=== PATIENT | male | born 1990 | race Caucasian/White ===

== ENCOUNTER 2018-03-29 21:57 | Emergency (ER) | payer OTHER, SELFPAY ==
[2018-03-29 23:23] LABS: KETONE, URINE AUTO RFX NEGATIVE (NEGATIVE); LEUKOCYTE ESTERASE UR AUTO RFX NEGATIVE (NEGATIVE); MUCUS, URINE RFX SMALL (NEGATIVE); NITRITE, URINE AUTO RFX NEGATIVE (NEGATIVE); RBC, URINE AUTO RFX 1 /HPF (0-3); SPECIFIC GRAVITY UR AUTO RFX 1.008 (1.002-1.035); SQUAM EPITHELIAL CELL UR AURFX 0 /HPF (0-6); WBC, URINE AUTO RFX 0 /HPF (0-3)
== END 2018-03-30 00:17 | disposition home or self-care (01) ==
LOC: M ED 03-30 00:17
DX: S13.9XXA Sprain of joints and ligaments of unspecified parts of neck, initial encounter (principal); T14.8XXA Other injury of unspecified body region, initial encounter; V43.52XA Car driver injured in collision with other type car in traffic accident, initial encounter; Y92.411 Interstate highway as the place of occurrence of the external cause
CPT/HCPCS: 70450

== ENCOUNTER 2018-03-31 18:27 | Emergency (ER) | payer OTHER, SELFPAY | END 2018-03-31 19:18 | disposition left against medical advice (07) | LOC: M ED 18:27 | DX: Z53.29 Procedure and treatment not carried out because of patient's decision for other reasons (principal) ==